=== PATIENT | female | born 1990 | race Caucasian/White ===

== ENCOUNTER → 2018-01-20 | Outpatient (CLI) | payer MEDICAID ==
[2018-01-20 13:56] LABS: HEMOGLOBIN 12.5 g/dl (12.0-15.5); MEAN CORPUSCULAR HEMOGLOBIN 29.6 pg (27.0-33.0); MEAN CORPUSCULAR HGB CONC 33.8 g/dl (32.0-36.5); MEAN CORPUSCULAR VOLUME 87.7 fl (80.0-96.0); PLATELET COUNT, AUTOMATED 265 10^3/uL (150-450); RED BLOOD COUNT 4.22 10^6/uL (4.00-5.40); RED CELL DISTRIBUTION WIDTH 14.4 % (11.5-14.5)
[2018-01-20 14:18] LABS: CONTROL LINE HCG INT CTR LINE PRESENT; HCG, SERUM QUALITATIVE NEGATIVE (NEGATIVE)
[2018-01-20 15:13] LABS: ALBUMIN 4.1 GM/DL (3.2-5.2); ALBUMIN/GLOBULIN RATIO 1.05 (1.00-1.93); ALKALINE PHOSPHATASE 74 U/L (45-117); ALT/SGPT 25 U/L (12-78); ANION GAP 10 MEQ/L (8-16); AST/SGOT 33 U/L (7-37); BILIRUBIN,TOTAL 0.6 MG/DL (0.2-1.0); BLOOD UREA NITROGEN 15 MG/DL (7-18); CALCIUM LEVEL 8.9 MG/DL (8.5-10.1); CARBON DIOXIDE LEVEL 24 MEQ/L (21-32); CHLORIDE LEVEL 105 MEQ/L (98-107); CREATININE FOR GFR 0.66 MG/DL (0.55-1.30); GLOMERULAR FILTRATION RATE > 60.0 (>60); GLUCOSE, FASTING 77 MG/DL (70-100); POTASSIUM SERUM 4.4 MEQ/L (3.5-5.1); SODIUM LEVEL 139 MEQ/L (136-145)
[2018-01-20 16:02] LABS: CHLAMYDIA DNA AMPLIFICATION NEGATIVE (NEGATIVE); GC DNA AMPLIFICATION NEGATIVE (NEGATIVE)
[2018-01-21 12:03] LABS: HEPATITIS B SURFACE ANTIGEN NEGATIVE (NEGATIVE)
[2018-01-21 12:25] LABS: HEPATITIS C VIRUS ABY INDEX 0.2 INDEX (<0.8)
[2018-01-21 12:26] LABS: HIV 1&2 SCREEN CENTAUR NEGATIVE (NEGATIVE)
== END ==
LOC: M LAB 12:53
DX: F11.20 Opioid dependence, uncomplicated (principal)
CPT/HCPCS: 93005

== ENCOUNTER → 2018-03-02 | Outpatient (REF) | payer MEDICAID | LOC: M LAB REF 18:35 | DX: Z12.4 Encounter for screening for malignant neoplasm of cervix (principal) ==

== ENCOUNTER → 2018-03-20 | Outpatient (CLI) | payer MEDICAID ==
[2018-03-20 15:03] LABS: ESTRADIOL 55.6 PG/ML
[2018-03-20 15:03] LABS: FOLLICLE STIMULATING HORMONE 6.6 mIU/mL; FREE T4 0.74 NG/DL (0.76-1.46); PROLACTIN 35.7 NG/ML
[2018-03-25 14:49] LABS: 17 HYDROXY PROGESTERONE 20 ng/dL (.); DEHYDROEPIANDROSTERONE SULFATE 104.8 ug/dL (84.8-378.0); TESTOSTERONE FREE (DIRECT) < 0.2 pg/mL (0.0-4.2); TESTOSTERONE TOTAL FOR T&D < 3.0 ng/dL (8-48)
== END ==
LOC: M LAB 13:30
DX: N97.9 Female infertility, unspecified (principal)
CPT/HCPCS: 83001

== ENCOUNTER → 2018-04-30 | Outpatient (REF) | payer OTHER ==
[2018-04-30 12:54] LABS: C REACTIVE PROTEIN QUANTITATIV < 0.30 MG/DL (0.00-0.30); RHEUMATOID FACTOR QUANT < 10.0 IU/ML (<15.0)
[2018-05-02 00:08] LABS: ANA (HEP2) Negative (.); CYCLIC CITRULLINATED PEPTIDE 8 units (0-19)
== END ==
LOC: M SFHCPLAZ 10:36
PROVIDERS: ATTEND Internal Medicine Rheumatology
DX: M25.50 Pain in unspecified joint (principal)

== ENCOUNTER → 2018-06-04 | Outpatient (CLI) | payer OTHER ==
[2018-06-04 14:42] LABS: BASO % 0.6 % (0.0-1.0); EOS # 0.3 10^3/uL (0.0-0.50); EOS % 3.8 % (0.0-3.0); HEMATOCRIT 36.5 % (36.0-47.0); HEMOGLOBIN 12.6 g/dl (12.0-15.5); LYMPH # 2.2 10^3/uL (1.5-4.5); LYMPH % 30.4 % (24.0-44.0); MEAN CORPUSCULAR HEMOGLOBIN 30.3 pg (27.0-33.0); MEAN CORPUSCULAR HGB CONC 34.5 g/dl (32.0-36.5); MEAN CORPUSCULAR VOLUME 87.7 fl (80.0-96.0); MONO # 0.6 10^3/uL (0.0-0.8); NEUTROPHILS # 4.1 10^3/uL (1.8-7.7); NEUTROPHILS % 57.1 % (36.0-66.0); PLATELET COUNT, AUTOMATED 232 10^3/uL (150-450); RED BLOOD COUNT 4.16 10^6/uL (4.00-5.40); WHITE BLOOD COUNT 7.1 10^3/uL (4.0-10.0)
[2018-06-04 16:12] LABS: CHLAMYDIA DNA AMPLIFICATION NEGATIVE (NEGATIVE); GC DNA AMPLIFICATION NEGATIVE (NEGATIVE)
[2018-06-05 11:21] LABS: HEPATITIS C VIRUS ABY INDEX 0.1 INDEX (<0.8); HIV 1&2 SCREEN CENTAUR NEGATIVE (NEGATIVE); RUBELLA IgG QUALITATIVE IMMUNE (IMMUNE)
== END ==
LOC: M LAB 13:51
PROVIDERS: ATTEND Obstetrics & Gynecology
DX: Z34.81 Encounter for supervision of other normal pregnancy, first trimester (principal); Z3A.08 8 weeks gestation of pregnancy

== ENCOUNTER → 2018-06-10 | Outpatient (CLI) | payer OTHER ==
[2018-06-14 00:08] LABS: HERPES ZOSTER, VARICELLA IgG 1550 index (Immune >165); HERPES ZOSTER, VARICELLA IgM <0.91 index (0.00-0.90)
== END ==
LOC: M SMT 14:46
PROVIDERS: ATTEND Advanced Practice Midwife
DX: Z34.01 Encounter for supervision of normal first pregnancy, first trimester (principal)

== ENCOUNTER → 2018-07-17 | Outpatient (CLI) | payer OTHER ==
--- NOTE | 2018-07-17 11:47 | REP ---
Obstetric sonography: History: Supervision of . For anatomy. Findings: Scanning through the gravid uterus demonstrates a viable single gestation in a variable lie. motion is observed and heart rate is recorded at 136 beats per minute. An anterior placenta is seen grade 0 without evidence of previa. Amniotic fluid is subjectively normal. Closed cervical length measured transabdominally is normal at 4.1 cm. No extrauterine abnormality is observed. anatomic scanning is inhibited by early gestational age and position. The following structures are less than optimally seen: nose and lips, four-chamber heart and outflow tract view on the left side, spine. The following additional anatomic structures are identified and felt to be unremarkable: cranium, cavum, cerebellum and posterior fossa, lungs, right ventricular outflow tract view, diaphragm, left-sided stomach, abdominal wall cord insertion, three-vessel umbilical cord, kidneys and bladder, upper and lower extremities. Bilateral small choroid plexus cysts are seen in the head. Biometry chart: BPD 3.9 cm 17 weeks 5 days Head circumference 14.7 cm 17 weeks 6 days Abdominal circumference 12.7 cm 18 weeks 2 days Femur length 2.6 cm 18 weeks 0 days Humeral length 2.4 cm 17 weeks 3 days Cerebellar diameter 1.8 cm 17 weeks 5 days HC/AC ratio normal 1.16. Cephalic index normal 0.72. Estimated weight 223 grams, 0 pounds 7 ounces, 50th percentile for 18 weeks 0 days. Impression: Viable single intrauterine gestation at 17 weeks 6 days by today's composite sonographic criteria. Small bilateral choroid plexus cysts. anatomic survey is less than complete as above. Variable lie. Electronically Signed by Juaquin Ramesh MD 07/17/2018 02:41 P
== END ==
LOC: M LRY 08:20
PROVIDERS: ATTEND Advanced Practice Midwife
DX: Z34.82 Encounter for supervision of other normal pregnancy, second trimester (principal)

== ENCOUNTER 2018-08-02 08:17 | Outpatient (CLI) | payer OTHER ==
[~2018-08-02] VITALS: Ht 162.6 cm; Wt 80.1 kg
[2018-08-02 08:40] VITALS: BP 125/70
[2018-08-02] MEDS ORDERED: MAPA500T2 PO (08:53)
[2018-08-02] MEDS ORDERED: METH10CO3 PO (08:53)
[2018-08-02] MEDS ORDERED: PRENTAB9 PO (08:53)
[2018-08-02] MEDS ORDERED: TUMS500C PO (08:53)
--- NOTE | 2018-08-02 09:53 | NUR ---
L&D triage note Reason for visit: episode of vaginal bleeding HPI: 28-year-old G1 at 20+2 weeks. Presents for evaluation after an episode of vaginal bleeding. Vaginal bleeding was noticed when she went to the bathroom and wiped. She also noticed bright red blood in the toilet. Most recent intercourse 2 days ago. 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 Denies any painful uterine contractions. No ongoing bleeding. No loss of fluid. Denies fever, chills, nausea, vomiting, headache , shortness breath or chest pain. PN course / pt history notable for the following: -history of drug abuse; currently treated with Methadone and Wellbutrin. -smoking during -Recent LSIL Pap 02/2018 Normotensive, normal heart rate, afebrile Heart regular rate and rhythm. No murmurs, gallops, rubs Lungs clear to auscultation bilaterally Abdomen soft, nontender. Uterine fundal height consistent with dates. No fundal tenderness Speculum: Cervix visually closed. Normal vaginal discharge. No foul odor. No blood in the vaginal vault or on/near cervix. Hemorrhoids present. SVE: closed/long/high TVUS,: CL = 4cm, no funneling/dynamic changes, no previa. cephalic presentation, normal AFV, MVP 4-5cm. EFM/Doptones: FHR was 140bpm [place]: no ctx pattern A/P: 28yo G1 at 20+2 weeks. No e/o active bleeding/abruption, IAI, PTL, or PPROM. Bleeding episode could have been from external hemorrhoids. Reassuring maternal and status. -Routine precautions reviewed -Encouraged smoking cessation. -RTO as scheduled or sooner if bleeding persists. Mikhail Jones DO
== END 2018-08-02 10:00 | disposition home or self-care (01) ==
LOC: M LDO 08:17
PROVIDERS: ATTEND Obstetrics & Gynecology
DX: O26.852 Spotting complicating pregnancy, second trimester (principal); O26.899 Other specified pregnancy related conditions, unspecified trimester; R87.612 Low grade squamous intraepithelial lesion on cytologic smear of cervix (LGSIL); O99.332 Smoking (tobacco) complicating pregnancy, second trimester; Z86.59 Personal history of other mental and behavioral disorders; Z3A.20 20 weeks gestation of pregnancy

== ENCOUNTER → 2018-09-01 | Outpatient (REF) | payer OTHER ==
[~2018-09-01] MED LIST: MAPA500T2 PO; METH10CO3 PO; PRENTAB9 PO; TUMS500C PO
== END ==
LOC: M LAB REF 16:58
PROVIDERS: ATTEND Advanced Practice Midwife
DX: Z34.82 Encounter for supervision of other normal pregnancy, second trimester (principal); Z3A.00 Weeks of gestation of pregnancy not specified

== ENCOUNTER → 2018-09-29 | Outpatient (CLI) | payer OTHER ==
[2018-09-29 13:35] LABS: HEMOGLOBIN 11.9 g/dl (12.0-15.5); MEAN CORPUSCULAR HEMOGLOBIN 32.2 pg (27.0-33.0); MEAN CORPUSCULAR VOLUME 94.6 fl (80.0-96.0); PLATELET COUNT, AUTOMATED 223 10^3/uL (150-450); WHITE BLOOD COUNT 8.2 10^3/uL (4.0-10.0)
== END ==
LOC: M LAB 11:48
PROVIDERS: ATTEND Advanced Practice Midwife
DX: O26.892 Other specified pregnancy related conditions, second trimester (principal); Z3A.00 Weeks of gestation of pregnancy not specified

== ENCOUNTER → 2018-11-26 | Outpatient (REF) | payer OTHER ==
[~2018-11-26] MED LIST changes: +ACET-683 PO; +BENA25CA4 PO; +IBUP80TA PO; +MIRA3350 PO; +VENL37TA PO; +ZANT150T40 PO
== END ==
LOC: M LAB REF 17:09
PROVIDERS: ATTEND Obstetrics & Gynecology
DX: Z34.83 Encounter for supervision of other normal pregnancy, third trimester (principal)

== ENCOUNTER 2018-12-25 07:25 | Inpatient (IN) | payer OTHER ==
[2018-12-25] VITALS (11 sets, daily range): BP systolic 107–137; BP diastolic 55–90
[~2018-12-25] VITALS: Ht 162.6 cm; Wt 89.3 kg
[~2018-12-25 07:25] MED LIST changes: -ACET-683 PO; -BENA25CA4 PO; -IBUP80TA PO; -MIRA3350 PO; -VENL37TA PO; -ZANT150T40 PO
[2018-12-25] MEDS ORDERED: LACTATED RINGER'S 1000 ML IV STA (08:12)
[2018-12-25] MEDS ORDERED: METH10CO3 PO (08:19)
[2018-12-25] MEDS ORDERED: BENA25CA4 PO (08:19)
[2018-12-25] MEDS ORDERED: ZANT150T40 PO (08:19)
[2018-12-25] MEDS ORDERED: MIRA3350 PO (08:19)
--- NOTE | 2018-12-25 08:36 | HPEPDOC ---
Obstetrical History & Physical General Date of Admission Dec 25, 2018 at 07:25 History of Present Illness Chief Complaint: Induction of labor Information Provided By: Patient Age: 28 : 1 Term: 0 Pre-term: 0 Abortions: 0 Livin Care Care: Good Care Dating Final EDC: Dec 18, 2018 Final EDC by: LMP EGA at Admission: 41 Antepartum Course Height (inches): 64 Pre- weight (lbs.): 165 Admission Weight (lbs.): 193 Past Medical History Past Obstetrical History : Past Obstetrical History: [employer] History: Abnormal Pap Past Medical History Medical History Bipolar, PTSD Surgical History: Other (Hand) Family History Significant Family History: COPD, Other (Osteoporosis, leukemia, dementia) Social History Social history Recovering IV drug user. Maintained with methadone 90 mg daily Marital Status: Single Family situation: Spouse/partner home Psychosocial History: Bipolar, Depression, PTSD * Smoker: current smoker Alcohol: Denies Drugs: other (recovering) Imunizations Tdap status: current Allergies Coded Allergies: No Known Allergies (Unverified , 08/02/18) Medications Scheduled Calcium Carbonate (Tums) 500 Mg Chw, 2 TAB PO QID for cough and congestion No.137/Iron/Folic Acd ( Vitamin Tablet) 1 Tab Tab, 1 TAB PO DA DAISHA Miscellaneous Medications Acetaminophen (Mapap) 500 Mg Tab, 500 MG PO Methadone HCl (Methadone Intensol) 10 Mg/Ml Con, 10 MG PO Physical Examination Physical Examination GENERAL: Alert and oriented times three. BREAST: . ABDOMEN: Gravid and non-tender to touch. Presentation confirmed by bedside sono FETUS: Is vertex (VTX) by sterile vaginal examination (SVE), fetus is vertex (VTX) by [place]. HEART RATE: Regular rate and rhythm. LUNGS: Clear to auscultation (CTA). EXTREMITIES: No edema. No clonus. Deep tendon reflexes (DTRs) + 2. Laboratory Data [facility] Laboratory Tests 2 12/25/18 07:42: Serology Scanned Report Hepatitis B Testing Pertinent Laboratoy Data Blood Type: O+ RBC Antibody Screen: Negative HIV: Negative Hepatitis B: Negative Hepatitis C: Negative Rapid Plasma Reagin: Nonreactive Rubella: Immune Chlamydia/Gonorrhea: Negative Group B Streptococcus: Negative Quad Screen Test: Negative (panorama low risk, female) Glucose Tolerance Test: 108 Anatomy Ultrasound Ultrasound Date: Jul 17, 2018 Placenta Location: Anterior Normal Anatomy: Yes Placenta Previa: No Estimated Weight (grams): 223 (50%) Other Ultrasounds 05/08/18 dating 7w5d 09/02/18 growth 750gm, 50%, breech 11/26/18 Cephalic 12/25/18 Cephalic Steroid Therapy Steroid Therapy: No Vaginal Examination Dilation: Fingertip Effacement: 50% Station: -3 Cervical Consistency: Soft Cervical Position: Posterior Presentation: Cephalic presentation Assessment Heart Rate (FHR): 115 Variability: Moderate Accelerations: Positive Decelerations: None Tocometer Contractions: Yes Frequency: irregular Strength: palpated as mild Assessment/Plan Assessment Maryam is a 28-year-old (G)1 para (P)0-0-0-0 at 41+0 weeks by 7-week u ltrasound. Presents to Labor and Delivery (L&D) for postdates induction. History is significant for recovering IV drug user, maintained on methadone 90mg daily. Denies LOF, bleeding. Reports good activity. Bedside sono confirms vertex presentation. Plan Admit and orient per consult Dr Zaidi Prison Teacher and consent. Diet: Regular. Group B Streptococcus (GBS) negative. Labs and intravenous (IV) per unit protocol. Counseled on misoprostol, Pitocin and induction of labor (IOL). Lactated Ringers (LR): Bolus 500 mL, then saline lock. Planning epidural Anticipate normal spontaneous delivery (). C-S as appropriate. Kathleen Davies CNM Dec 25, 2018 08:36
[2018-12-25 09:16] LABS: HEMOGLOBIN 12.3 g/dl (12.0-15.5); MEAN CORPUSCULAR HEMOGLOBIN 32.8 pg (27.0-33.0); MEAN CORPUSCULAR HGB CONC 34.2 g/dl (32.0-36.5); PLATELET COUNT, AUTOMATED 190 10^3/uL (150-450); RED BLOOD COUNT 3.75 10^6/uL (4.00-5.40); WHITE BLOOD COUNT 6.4 10^3/uL (4.0-10.0)
[2018-12-25] MEDS: miSOPROStol 50 MCG 1/2 TAB (S0191) PO SCH ×4 (09:34→23:16)
[2018-12-25 09:40] LABS: AMPHETAMINES URINE REFLEX NEGATIVE (NEGATIVE); BARBITURATES URINE REFLEX NEGATIVE (NEGATIVE); BENZODIAZEPINES URINE REFLEX NEGATIVE (NEGATIVE); CANNABINOIDS URINE REFLEX NEGATIVE (NEGATIVE); COCAINE METABOLITE URINE REFLE NEGATIVE (NEGATIVE); OPIATES URINE REFLEX NEGATIVE (NEGATIVE); PHENCYCLIDINE URINE REFLEX NEGATIVE (NEGATIVE)
[2018-12-25 09:48] LABS: METHADONE URINE REFLEX PENDING CONFIRMATION (NEGATIVE)
--- NOTE | 2018-12-25 09:52 | IPNPDOC ---
Text Note Date of Service The patient was seen on 12/25/18. NOTE Pt is now reporting history of a "lesion", treated with Valtrex when she was in [place] Denies any further outbreaks Vulvar inspection shows no evidence of active or recent lesions Records release requested for further information Will update physician Florinda EVANS, I+Florinda HINDS, I+O Laboratory Tests 12/25/18 09:01 Red Blood Count 3.75 L, Mean Corpuscular Volume 96.0, Mean Corpuscular Hemoglobin 32.8, Mean Corpuscular Hemoglobin Concent 34.2, Red Cell Distribution Width 12.8 Kathleen Davies CNM Dec 25, 2018 09:52
[2018-12-25] MEDS ORDERED: CALCIUM CARBONATE 500 MG CHEW U/D PO PRN (14:15)
[2018-12-25] MEDS: FAMOTIDINE 20 MG TAB PO SCH ×2 (14:47→20:50)
--- NOTE | 2018-12-25 23:30 | IPNPDOC ---
Text Note Date of Service The patient was seen on 12/25/18. NOTE Remains relatively comfortable Irregular UC FH baseline 120, Cat I SVE 50/-3, more anterior Repeat misoprostol, consider Cooks catheter and pitocin VS,Fishbone, I+O VS, Fishbone, I+O Laboratory Tests 12/25/18 09:01 Red Blood Count 3.75 L, Mean Corpuscular Volume 96.0, Mean Corpuscular Hemoglobin 32.8, Mean Corpuscular Hemoglobin Concent 34.2, Red Cell Distribution Width 12.8 Vital Signs Date Time Temp Pulse Resp B/P (MAP) Pulse Ox O2 Delivery O2 Flow Rate FiO2 12/25/18 20:48 63 132/90 (104) 12/25/18 19:23 97.8 18 Kathleen Davies CNM Dec 25, 2018 23:30
[2018-12-26] VITALS (58 sets, daily range): BP systolic 109–165; BP diastolic 58–101
[2018-12-26] MEDS: miSOPROStol 50 MCG 1/2 TAB (S0191) PO SCH (03:59)
[2018-12-26] MEDS: METHADONE 10 MG TAB (S0109) PO SCH (04:00)
[2018-12-26] MEDS ORDERED: OXYTOCIN 30 UNITS IN 0.9% NaCl 500ML IV BAG (J2590) As Ordered ONE (08:18)
[2018-12-26] MEDS ORDERED: OXYTOCIN DRIP 30 UNITS in IV 1 EA IV SCH (08:30)
[2018-12-26] MEDS: LR 1,000 ML IV SCH ×3 (08:32→18:40)
[2018-12-26] MEDS: FAMOTIDINE 20 MG TAB PO SCH ×2 (09:54→21:00)
[2018-12-26] MEDS ORDERED: FENTANYL 2MCG/ML ROPIVACAINE 0.2% IN 0.9% NACL 100ML IVBAG As Ordered ONE (19:14)
[2018-12-26] MEDS ORDERED: LACTATED RINGER'S 1000 ML IV PRN (20:30)
[2018-12-26] MEDS ORDERED: EPIDURAL/PCA KEYS XX PRN (20:30)
[2018-12-26] MEDS ORDERED: NALOXONE INJ 0.4 MG/1 ML VIAL (J2310) IV PRN (20:30)
[2018-12-26] MEDS ORDERED: EPIDURAL COMMENT XX SCH (20:30)
[2018-12-26] MEDS ORDERED: ONDANSETRON 4MG/2ML VIAL (J2405) IV PRN (20:30)
[2018-12-26] MEDS ORDERED: REFRIGERATOR IV KEYS XX PRN (20:30)
[2018-12-26] MEDS ORDERED: FENTANYL/ROPIVACAINE/NACL BAG 100 ML EPIDURAL SCH (20:30)
[2018-12-26] MEDS ORDERED: diphenhydrAMINE INJ 50MG/ML VIAL (J1200) IV PRN (20:30)
[2018-12-26] MEDS ORDERED: ePHEDrine SULFATE 25 MG/5 ML(5MG/ML) SYRINGE IV PRN (20:30)
[2018-12-26] MEDS ORDERED: ACETAMINOPHEN 500 MG TAB PO PRN (23:00)
[2018-12-27] VITALS (17 sets, daily range): BP systolic 99–131; BP diastolic 51–78
[2018-12-27] MEDS ORDERED: AZITHROMYCIN INJ 500MG VIAL (J0456) As Ordered ONE (00:11)
[2018-12-27] MEDS ORDERED: BICITRA 30ML SOLN UDC As Ordered ONE (00:12)
[2018-12-27] MEDS ORDERED: ceFAZolin 2 GM/D5W 50 ML IV BAG (J0690 PER 500MG) As Ordered ONE (00:12)
[2018-12-27] MEDS ORDERED: MORPHINE PRES-FREE INJ 10 MG/10 ML VIAL (J2274) As Ordered ONE (00:54)
[2018-12-27] MEDS ORDERED: ONDANSETRON 4MG/2ML VIAL (J2405) As Ordered ONE (00:54)
[2018-12-27] MEDS ORDERED: LIDOCAINE PRES-FREE 2% 10ML AMP As Ordered ONE (00:54)
[2018-12-27] MEDS ORDERED: OXYTOCIN INJ 10 UNITS/ML VIAL (J2590) As Ordered ONE ×2 (00:54→01:01)
[2018-12-27] MEDS ORDERED: KETOROLAC 60 MG/2 ML VIAL (J1885) As Ordered ONE (00:54)
[2018-12-27] MEDS ORDERED: EPINEPHrine INJ 1 MG/ML 1ML AMP As Ordered ONE (00:54)
[2018-12-27] MEDS ORDERED: NALBUPHINE HCL 10 MG/ML AMP (J2300) IV PRN (01:00)
[2018-12-27] MEDS ORDERED: diphenhydrAMINE INJ 50MG/ML VIAL (J1200) IV PRN (01:00)
[2018-12-27] MEDS ORDERED: NALOXONE INJ 0.4 MG/1 ML VIAL (J2310) IV PRN ×2 (01:00)
[2018-12-27] MEDS ORDERED: METOCLOPRAMIDE INJ 10MG/2ML VIAL (J2765) IV PRN (01:00)
[2018-12-27] MEDS ORDERED: ONDANSETRON 4MG/2ML VIAL (J2405) IV PRN ×2 (01:00→02:00)
[2018-12-27] MEDS ORDERED: dexameTHASONE 4 MG/ML 1ML VIAL (J1100) As Ordered ONE (01:01)
[2018-12-27] MEDS ORDERED: PHENYLephrine HCL 500 MCG/5 ML (100MCG/ML) SYRINGE (J2370) As Ordered ONE (01:01)
[2018-12-27 01:07] LABS: CORD GAS ABE A -0.5; CORD GAS ABE V -1.5; CORD GAS HCO3 V 23.7 MEQ/L; CORD GAS O2 SAT A 45.4 %; CORD GAS O2 SAT V 80.2 %; CORD GAS PCO2 A 49.7 mmHg; CORD GAS PCO2 V 41.8 mmHg; CORD GAS PH A 7.336 UNITS; CORD GAS PH V 7.372 UNITS; CORD GAS PO2 A 19.4 mmHg; CORD GAS PO2 V 36.1 mmHg; CORD GAS SBC A 22.7 MEQ/L; CORD GAS SBC V 22.8 MEQ/L; CORD GAS TCO2 A 27.5 MEQ/L
[2018-12-27] MEDS ORDERED: fentaNYL 100 MCG/2 ML INJECTION (J3010) IV PRN (02:00)
[2018-12-27] MEDS: LR 1,000 ML IV SCH ×2 (02:06→10:06)
[2018-12-27] MEDS ORDERED: OXYTOCIN DRIP 30 UNITS in IV 1 EA IV SCH (02:06)
[2018-12-27] MEDS ORDERED: PERCOCET 5MG/325MG TAB PO PRN (02:15)
[2018-12-27] MEDS ORDERED: MEASLES,MUMPS,RUBELLA VACCINE INJ (MMR-II) (90707) SC SCH (02:15)
[2018-12-27] MEDS ORDERED: RHOGAM 300 MCG (1500 IU) INJ (J2790) IM SCH (02:15)
[2018-12-27] MEDS ORDERED: MOM 30ML SUSPENSION UDC PO PRN (02:15)
[2018-12-27] MEDS: METHADONE 10 MG TAB (S0109) PO SCH (04:30)
[2018-12-27] MEDS: KETOROLAC 30 MG/ML VIAL (J1885) IV SCH ×3 (06:40→19:48)
--- NOTE | 2018-12-27 08:25 | RO ---
DATE OF OPERATION: 12/26/2018 PREOPERATIVE DIAGNOSIS: Nonreassuring heart rate tracing. POSTOPERATIVE DIAGNOSES: Nonreassuring heart rate tracing. PROCEDURE PERFORMED: Primary lower transverse section. SURGEON: Bernie Zaidi MD BILINGUAL OPERATOR: None. ANESTHESIA: Epidural. ESTIMATED BLOOD LOSS: 500 mL. URINE OUTPUT: 200 mL. IV FLUIDS: 500 mL of lactated Ringer solution. OPERATIVE FINDINGS: Live born female infant, score 8 and 9. Weight was 7 pounds 11 ounces or 3490 grams. SPECIMENS: Cord gases; cord pH 7.33, 7.32, -0.5 to -1.5 base excesses respectively. PREOPERATIVE ANTIBIOTICS: 2 grams of Ancef, 500 mg of azithromycin. INDICATION FOR OPERATION: Mrs. Hernadez is a 28-year-old, 1 that presented at 41 weeks for induction of labor. Her antepartum course is remarkable for repetitive decelerations, ike in the 80s and cervix remained unchanged at 6 cm. She was counseled for section with indication of nonreassuring rate tracing. DESCRIPTION OF OPERATION: After informed consent was obtained and written consent was reviewed, the patient was brought to the operating room where she was prepped and draped in a normal sterile fashion. She had previously had a Berrios catheter that was placed and set to gravity. A time-out in the operating room was then performed identifying the patient, procedure to be performed, as well as drug allergies. Anesthesia was tested and deemed to be adequate. A Pfannenstiel skin incision was then made and this was carried down to the underlying rectus fascia. The fascia was scored and this incision was extended bilaterally. The fascia was then dissected off the underlying rectus muscles both superiorly and inferiorly. The rectus muscles were in the midline. The peritoneum was then entered. A Mobius retractor was then placed. The vesicouterine peritoneum was then identified. It was then excised to create a bladder flap. A curvilinear incision was then made in the lower uterine segment. This incision was extended bilaterally. head was brought to the level of incision atraumatically and was delivered along with shoulders and corpus. Cord was clamped times two and was cut, and was taken over to the warmer with a good cry. Cord gases were obtained. Placenta was then delivered grossly intact. The uterus was then cleared of all clots and debris. The uterine incision was then closed two layers using #0 Vicryl first in a running locking fashion, followed by a second layer for imbrication in a running nonlocking fashion. The abdomen was then suctioned. The anterior peritoneum was then reapproximated with #3-0 Vicryl. The rectus muscles were reapproximated #3-0 Vicryl. The fascia was then closed with #0 Vicryl in a running nonlocking fashion. The subcutaneous tissue was then irrigated and suctioned. Subcutaneous tissue was then reapproximated with #3-0 Vicryl. Several subdermal stitches were placed with #3-0 Vicryl and the skin was closed with #4-0 Monocryl in subcuticular fashion. Incision was then clean and dry and was dressed. The patient was then taken to recovery in stable condition. Counts were correct.
[2018-12-27] MEDS: PRENATAL VITAMINS CHEWABLE TABLET PO SCH (09:50)
[2018-12-27] MEDS: DOCUSATE SODIUM 100 MG CAP PO SCH ×2 (09:50→19:48)
[2018-12-28] MEDS: IBUPROFEN 800 MG TAB PO SCH ×3 (04:04→19:49)
[2018-12-28] MEDS: METHADONE 10 MG TAB (S0109) PO SCH (04:06)
[2018-12-28 05:34] VITALS: BP 108/63
[2018-12-28 07:18] LABS: HEMOGLOBIN 8.8 g/dl (12.0-15.5); MEAN CORPUSCULAR HEMOGLOBIN 32.5 pg (27.0-33.0); MEAN CORPUSCULAR HGB CONC 33.8 g/dl (32.0-36.5); MEAN CORPUSCULAR VOLUME 95.9 fl (80.0-96.0); PLATELET COUNT, AUTOMATED 159 10^3/uL (150-450); RED BLOOD COUNT 2.71 10^6/uL (4.00-5.40); WHITE BLOOD COUNT 10.8 10^3/uL (4.0-10.0)
[2018-12-28] MEDS: DOCUSATE SODIUM 100 MG CAP PO SCH ×2 (10:20→21:11)
[2018-12-28] MEDS: PRENATAL VITAMINS CHEWABLE TABLET PO SCH (10:20)
[2018-12-28] MEDS: VENLAFAXINE 37.5 MG TAB PO SCH (10:20)
[2018-12-28] MEDS: PERCOCET 5MG/325MG TAB PO PRN ×3 (12:14→23:29)
[2018-12-28 18:00] VITALS: BP 121/69
[2018-12-28 22:07] VITALS: BP 125/83
[2018-12-29] MEDS: IBUPROFEN 800 MG TAB PO SCH ×3 (04:07→19:22)
[2018-12-29] MEDS: METHADONE 10 MG TAB (S0109) PO SCH (04:07)
[2018-12-29 06:23] VITALS: BP 144/87
[2018-12-29] MEDS: PERCOCET 5MG/325MG TAB PO PRN ×2 (06:32→11:33)
[2018-12-29] MEDS ORDERED: VENL37TA PO (07:25)
[2018-12-29] MEDS ORDERED: ACET-683 PO (07:25)
[2018-12-29] MEDS ORDERED: IBUP80TA PO (07:25)
--- NOTE | 2018-12-29 07:33 | DS.PDOC ---
Discharge Summary General Date of Admission Dec 25, 2018 at 07:25 Date of Discharge 12/29/18 Attending Physician: DOMINIQUE BOLAÑOS MD. Discharge Summary PROCEDURES PERFORMED DURING STAY: Primary section. ADMITTING DIAGNOSES: 1. IUP at 41 weeks gestation. 2. IOL DISCHARGE DIAGNOSES: 1. Day 2 postoperative. COMPLICATIONS/CHIEF COMPLAINT: Induction. HISTORY OF PRESENT ILLNESS: Patient is a 28-year-old female who is now a who presented to L&D for an induction of labor. Her has been complicated by a history of PTSD and depression. It has also been complicated by methadone use, which she is taking 90 mg daily. She progressed to 6 cm and was found to have a non-reassuring heart rate. A section was performed due to this. HOSPITAL COURSE: uncomplicated. DISCHARGE MEDICATIONS: Please see below. ALLERGIES: Please see below. PHYSICAL EXAMINATION ON DISCHARGE: VITAL SIGNS: Please see below. GENERAL: A+Ox3. RESPIRATORY EXAMINATION: regular rate with no use of accessory muscles ABDOMINAL EXAMINATION: fundus firm; Dressing is intact. EXTREMITIES: generalized edema with areas of 1+ pitting edema SKIN: intact with no rashes LABORATORY DATA: Please see below. ACTIVITY: As tolerated DIET: regular DISCHARGE INSTRUCTIONS: 1. Follow-up in 1 week for incision check and 6-8 weeks for visit. 2. Education done on incision care. 3. Reviewed signs and symptoms of mastitis, endometriosis, hemorrhage, DVT, pulmonary embolism, depression, pelvic rest, and pain management. DISCHARGE CONDITION: Stable Vital Signs/I&Os Vital Signs Date Time Temp Pulse Resp B/P (MAP) Pulse Ox O2 Delivery O2 Flow Rate FiO2 12/29/18 06:32 18 12/29/18 06:23 97.8 65 144/87 (106) 12/28/18 18:00 99 Laboratory Data CBC/BMP Item Value Date Time White Blood Count 10.8 10^3/uL H 12/28/18 0657 Red Blood Count 2.71 10^6/uL L 12/28/18 0657 Hemoglobin 8.8 g/dl L 12/28/18 0657 Hematocrit 26.0 % L 12/28/18656 Mean Corpuscular Volume 95.9 fl 12/28/18656 Mean Corpuscular Hemoglobin 32.5 pg 12/28/18656 Mean Corpuscular Hemoglobin Concent 33.8 g/dl 12/28/18 0657 Red Cell Distribution Width 13.1 % 12/28/18 0657 Platelet Count 159 10^3/uL 12/28/18 0657 Nucleated Red Blood Cells % (auto) 0.0 % 12/28/18 0657 Discharge Medications Scheduled Methadone HCl (Methadone Intensol) 10 Mg/1 Ml Oral.conc, 90 MG PO DAILY, (Reported) No.137/Iron/Folic Acd ( Vitamin Tablet) 1 Tab Tab, 1 TAB PO DAILY, (Reported) Venlafaxine HCl (Venlafaxine HCl) 37.5 Mg Tablet, 37.5 MG PO DAILY Scheduled PRN Acetaminophen (Acetaminophen) 500 Mg Tablet, 1,000 MG PO Q8HP PRN for BACK PAIN Ibuprofen (Ibuprofen) 800 Mg Tablet, 800 MG PO Q8HP PRN for PAIN Polyethylene Glycol 3350 (Miralax) 119 Gm Powder, 17 GM PO DAILY PRN for CONSTIPATION, (Reported) dilute in 8 ounces of water or juice Allergies Coded Allergies: No Known Allergies (Unverified , 08/02/18) JULISA SYED CNM Dec 29, 2018 07:33
[2018-12-29] MEDS: PRENATAL VITAMINS CHEWABLE TABLET PO SCH (09:58)
[2018-12-29] MEDS: DOCUSATE SODIUM 100 MG CAP PO SCH ×2 (09:58→20:26)
[2018-12-29] MEDS: VENLAFAXINE 37.5 MG TAB PO SCH (09:58)
[2018-12-29 18:00] VITALS: BP 144/82
[2018-12-30] MEDS: PERCOCET 5MG/325MG TAB PO PRN (00:10)
[2018-12-30] MEDS: METHADONE 10 MG TAB (S0109) PO SCH (04:15)
[2018-12-30] MEDS: IBUPROFEN 800 MG TAB PO SCH ×2 (04:16→10:20)
[2018-12-30 05:30] VITALS: BP 145/93
[2018-12-30 08:06] LABS: GC Methadone 1050 ng/mL (Cutoff=100); Methadone Positive (.)
[2018-12-30] MEDS: VENLAFAXINE 37.5 MG TAB PO SCH (10:19)
[2018-12-30] MEDS: DOCUSATE SODIUM 100 MG CAP PO SCH (10:19)
[2018-12-30] MEDS: PRENATAL VITAMINS CHEWABLE TABLET PO SCH (10:19)
--- NOTE | 2018-12-31 17:45 | DSES ---
DATE OF ADMISSION: 12/25/2018 DATE OF DISCHARGE: 12/30/2018 HISTORY: A 28-year-old G1 female at 41 weeks gestation presents for post dates induction. She has a past history of intravenous (IV) drug use and is on methadone maintenance. HOSPITAL COURSE: Patient was admitted on 12/25/2018. She had induction of labor started with misoprostol. She made slow progress in labor. On 12/27/2018, she was noted to have non-reassuring heart tracing, 3-pattern decelerations remote from delivery. Plan was made for section. On 12/26/2018 she underwent primary low transverse section for a 7-pound 11-ounce female . There were no complications. Her postoperative course was unremarkable. She had adequate return of bladder and bowel function. Her postoperative hemoglobin was 8.8 grams per deciliter. She seemed stable for discharge on postoperative day #3. ADMISSION DIAGNOSIS: , 41 weeks. DISCHARGE DIAGNOSIS: Delivered. PROCEDURE: Primary low transverse section. DISPOSITION: Patient will followup with Dr. Zaidi in 2 weeks.
== END 2018-12-30 13:00 | disposition home or self-care (01) | DRG 540 ==
LOC: M LDI 07:25 → M OBS 12-27 03:50
PROVIDERS: ADMIT Advanced Practice Midwife; ATTEND Obstetrics & Gynecology
PROC: 3E0P7GC Introduction of Other Therapeutic Substance into Female Reproductive, Via Natural or Artificial Opening (ICD-10-PCS; 2018-12-25)
PROC: 10D00Z1 Extraction of Products of Conception, Low, Open Approach (ICD-10-PCS; principal; 2018-12-26)
DX: O48.0 Post-term pregnancy (principal); F17.210 Nicotine dependence, cigarettes, uncomplicated; Z3A.41 41 weeks gestation of pregnancy; Z37.0 Single live birth; O76 Abnormality in fetal heart rate and rhythm complicating labor and delivery; O99.334 Smoking (tobacco) complicating childbirth

== ENCOUNTER → 2019-02-22 | Outpatient (CLI) | payer OTHER ==
[~2019-02-22] MED LIST changes: +ACET-683 PO; +BENA25CA4 PO; +IBUP80TA PO; +MIRA3350 PO; +VENL37TA PO; +ZANT150T40 PO
[2019-02-22 12:02] LABS: HEMATOCRIT 36.2 % (36.0-47.0); HEMOGLOBIN 11.9 g/dl (12.0-15.5); MEAN CORPUSCULAR HEMOGLOBIN 31.1 pg (27.0-33.0); MEAN CORPUSCULAR HGB CONC 32.9 g/dl (32.0-36.5); MEAN CORPUSCULAR VOLUME 94.5 fl (80.0-96.0); PLATELET COUNT, AUTOMATED 253 10^3/uL (150-450); RED BLOOD COUNT 3.83 10^6/uL (4.00-5.40); WHITE BLOOD COUNT 6.5 10^3/uL (4.0-10.0)
[2019-02-22 12:32] LABS: ALBUMIN 3.9 GM/DL (3.2-5.2); ALT/SGPT 28 U/L (12-78); BILIRUBIN,TOTAL 0.5 MG/DL (0.2-1.0); BLOOD UREA NITROGEN 14 MG/DL (7-18); CALCIUM LEVEL 9.2 MG/DL (8.5-10.1); CARBON DIOXIDE LEVEL 27 MEQ/L (21-32); CHLORIDE LEVEL 105 MEQ/L (98-107); CREATININE FOR GFR 0.82 MG/DL (0.55-1.30); GLOMERULAR FILTRATION RATE > 60.0 (>60); GLUCOSE, FASTING 97 MG/DL (70-100); POTASSIUM SERUM 4.4 MEQ/L (3.5-5.1); SODIUM LEVEL 138 MEQ/L (136-145); TOTAL PROTEIN 7.4 GM/DL (6.4-8.2)
[2019-02-22 12:34] LABS: HCG, SERUM QUALITATIVE NEGATIVE (NEGATIVE)
[2019-02-22 12:53] LABS: HEPATITIS B SURFACE ANTIGEN NEGATIVE (NEGATIVE)
[2019-02-22 13:20] LABS: HEPATITIS C VIRUS ABY INDEX 0.1 INDEX (<0.8)
[2019-02-22 13:21] LABS: HIV 1&2 SCREEN CENTAUR NEGATIVE (NEGATIVE)
[2019-02-22 14:09] LABS: CHLAMYDIA DNA AMPLIFICATION NEGATIVE (NEGATIVE); GC DNA AMPLIFICATION NEGATIVE (NEGATIVE)
--- NOTE | 2019-02-24 08:14 | ECGEPIP ---
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
== END ==
LOC: M LAB 11:06
PROVIDERS: ATTEND Family Medicine
DX: F11.20 Opioid dependence, uncomplicated (principal)

== ENCOUNTER → 2019-04-13 | Outpatient (REF) | payer OTHER ==
[2019-04-13 16:46] LABS: APPEARANCE, URINE CLEAR (CLEAR); BACTERIA, URINE AUTO NEGATIVE (NEGATIVE); BILIRUBIN, URINE AUTO NEGATIVE (NEGATIVE); BLOOD, URINE BLOOD NEGATIVE (NEGATIVE); COLOR, URINE STRAW (YELLOW); GLUCOSE, URINE (UA) AUTO NEGATIVE (NEGATIVE); KETONE, URINE AUTO NEGATIVE (NEGATIVE); LEUKOCYTE ESTERASE, URINE AUTO 2+ (NEGATIVE); MUCUS, URINE SMALL (NEGATIVE); NITRITE, URINE AUTO NEGATIVE (NEGATIVE); PROTEIN, URINE AUTO NEGATIVE (NEGATIVE); RBC, URINE AUTO 0 /HPF (0-3); SPECIFIC GRAVITY URINE AUTO 1.004 (1.002-1.035); SQUAMOUS EPITHELIAL CELL UR AU 0 /HPF (0-6); UROBILINOGEN, URINE AUTO 0.2 mg/dL (0.0-2.0); WBC, URINE AUTO 1 /HPF (0-3)
== END ==
LOC: M LAB REF 11:50
PROVIDERS: ATTEND Obstetrics & Gynecology
DX: R39.89 Other symptoms and signs involving the genitourinary system (principal); Z91.89 Other specified personal risk factors, not elsewhere classified

== ENCOUNTER 2020-02-09 15:17 | Emergency (ER) | payer OTHER ==
[~2020-02-09] VITALS: Ht 160 cm; Wt 83.6 kg
[2020-02-09] MEDS ORDERED: GABA-843 (15:25)
[2020-02-09] MEDS ORDERED: BUPR150T5 (15:25)
[2020-02-09] MEDS ORDERED: INDO50CA91 PO (17:32)
[2020-02-09 17:43] VITALS: BP 131/92
== END 2020-02-09 17:43 | disposition home or self-care (01) ==
LOC: M ED 15:17
DX: M25.461 Effusion, right knee (principal); M71.21 Synovial cyst of popliteal space [Baker], right knee; Z79.899 Other long term (current) drug therapy

== ENCOUNTER → 2020-08-08 | Outpatient (CLI) | payer OTHER ==
[~2020-08-08] MED LIST changes: +BUPR150T5; +GABA-282; +INDO50CA91 PO
[2020-08-08 15:40] LABS: HEMOGLOBIN 12.7 g/dl (12.0-15.5); MEAN CORPUSCULAR HEMOGLOBIN 30.8 pg (27.0-33.0); MEAN CORPUSCULAR HGB CONC 32.6 g/dl (32.0-36.5); MEAN CORPUSCULAR VOLUME 94.7 fl (80.0-96.0); PLATELET COUNT, AUTOMATED 252 10^3/uL (150-450); RED BLOOD COUNT 4.12 10^6/uL (4.00-5.40); WHITE BLOOD COUNT 6.2 10^3/uL (4.0-10.0)
[2020-08-08 15:56] LABS: HCG, SERUM QUALITATIVE NEGATIVE (NEGATIVE)
[2020-08-08 15:58] LABS: ALBUMIN 3.9 GM/DL (3.2-5.2); ALT/SGPT 19 U/L (12-78); BILIRUBIN,TOTAL 0.3 MG/DL (0.2-1.0); BLOOD UREA NITROGEN 23 MG/DL (7-18); CALCIUM LEVEL 8.8 MG/DL (8.5-10.1); CARBON DIOXIDE LEVEL 32 MEQ/L (21-32); CHLORIDE LEVEL 104 MEQ/L (98-107); CREATININE FOR GFR 0.79 MG/DL (0.55-1.30); GLOMERULAR FILTRATION RATE > 60.0 (>60); GLUCOSE, FASTING 114 MG/DL (70-100); POTASSIUM SERUM 4.2 MEQ/L (3.5-5.1); SODIUM LEVEL 139 MEQ/L (136-145); TOTAL PROTEIN 7.3 GM/DL (6.4-8.2)
[2020-08-08 16:17] LABS: HEPATITIS B SURFACE ANTIGEN NEGATIVE (NEGATIVE)
[2020-08-08 16:45] LABS: HEPATITIS C VIRUS ABY INDEX < 0.0 INDEX (<0.8)
[2020-08-08 16:46] LABS: HIV 1&2 SCREEN CENTAUR NEGATIVE (NEGATIVE)
--- NOTE | 2020-08-08 20:44 | ECGEPIP ---
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
== END ==
LOC: M LAB 14:50
PROVIDERS: ATTEND Family Medicine
DX: F11.20 Opioid dependence, uncomplicated (principal)

== ENCOUNTER → 2020-10-26 | Outpatient (CLI) | payer OTHER ==
--- NOTE | 2020-10-26 18:24 | REPVR ---
PROCEDURE INFORMATION: Exam: CT Maxillofacial Without Contrast, Sinus Exam date and time: 10/26/2020 6:10 PM Age: 30 years old Clinical indication: Condition or disease; Other: Deviated septum; Additional info: Deviated nasal septum TECHNIQUE: Imaging protocol: CT Maxillofacial without contrast. Focus on the sinuses. Radiation optimization: All CT scans at this facility use at least one of these dose optimization techniques: automated exposure control; mA and/or kV adjustment per patient size (includes targeted exams where dose is matched to clinical indication); or iterative reconstruction. COMPARISON: No relevant prior studies available. FINDINGS: Frontal sinuses: Normal. No air-fluid levels. Ethmoid air cells: Inflammatory changes in the ethmoid and left maxillary sinuses. Sphenoid sinuses: Normal. No air-fluid levels. Maxillary sinuses: Normal. No air-fluid levels. Ostiomeatal units are patent. Nasal cavity/Septum: Nasal septum deviated to the right. Bilateral aidee bullosa. Orbital cavity: Orbits are normal. Globes are unremarkable. Bones/joints: Unremarkable. Soft tissues: Unremarkable. IMPRESSION: 1. Nasal septum deviated to the right. 2. Bilateral aidee bullosa. 3. Inflammatory changes in the ethmoid and left maxillary sinuses. Electronically signed by: Yong Mcmanus On 10/26/2020 18:23:58 PM
== END ==
LOC: M RAD 18:04
PROVIDERS: ATTEND Otolaryngology
DX: J34.2 Deviated nasal septum (principal)

== ENCOUNTER → 2020-12-15 | Outpatient (CLI) | payer OTHER | LOC: M LABSMTC 12:01 | PROVIDERS: ATTEND Anesthesiology | DX: Z01.812 Encounter for preprocedural laboratory examination (principal) ==

== ENCOUNTER 2020-12-20 08:11 | Day surgery (SDC) | payer OTHER ==
[~2020-12-20] VITALS: Ht 170.2 cm; Wt 83.8 kg
[~2020-12-20 08:11] MED LIST changes: +ALBU8.5H; -BUPR150T5; +BUPR150T5 PO; -GABA-282; +GABA-282 PO; +LIDOCAINE 1% MDV 20ML VIAL SQ PRN; +LR 1,000 ML IV ONE; +TOPI25TA10
[2020-12-20] MEDS ORDERED: dexameTHASONE 4 MG/ML 1ML VIAL (J1100 PER 1MG) As Ordered ONE (08:55)
[2020-12-20] MEDS ORDERED: ROCURONIUM BROMIDE 50 MG/5 ML VIAL As Ordered ONE (08:55)
[2020-12-20] MEDS ORDERED: LIDOCAINE 2% 100MG/5ML SDV (FOR ANES.) As Ordered ONE (08:55)
[2020-12-20] MEDS ORDERED: ONDANSETRON 4MG/2ML VIAL As Ordered ONE (08:55)
[2020-12-20] MEDS ORDERED: fentaNYL 100 MCG/2 ML INJECTION (J3010) As Ordered ONE (08:55)
[2020-12-20] MEDS ORDERED: MIDAZOLAM INJ 2MG/2ML VIAL (J2250 PER 1MG) As Ordered ONE (08:55)
[2020-12-20] MEDS ORDERED: propofoL 200 MG/20 ML VIAL As Ordered ONE ×2 (08:58→10:31)
[2020-12-20] MEDS ORDERED: LIDOCAINE W/EPINEPHRINE 1% 20ML VIAL As Ordered ONE (09:34)
[2020-12-20] MEDS ORDERED: EPINEPHrine 1MG/ML INJ 30ML MD-VIAL As Ordered ONE ×2 (09:35→10:54)
[2020-12-20] MEDS ORDERED: METHYLENE BLUE 0.5% (5MG/ML) 10 ML AMP (PROVAYBLUE) As Ordered ONE (09:35)
[2020-12-20] MEDS ORDERED: ACETAMINOPHEN 1000MG 100ML IV BTL (OFIRMEV) (J0131 PER 10MG) As Ordered ONE (10:16)
[2020-12-20] MEDS ORDERED: SUGAMMADEX SODIUM 500 MG/5 ML VIAL (BRIDION) As Ordered ONE (10:20)
[2020-12-20] MEDS ORDERED: METOCLOPRAMIDE INJ 10MG/2ML VIAL (J2765 PER 1) As Ordered ONE (10:25)
[2020-12-20] MEDS ORDERED: LR 1,000 ML IV SCH ×2 (11:30→11:55)
[2020-12-20] MEDS ORDERED: ONDANSETRON 4MG/2ML VIAL IV PRN (11:55)
[2020-12-20] MEDS ORDERED: fentaNYL 100 MCG/2 ML INJECTION (J3010) IV PRN (11:55)
[2020-12-20] MEDS: oxyCODONE 5MG TAB PO PRN ×2 (12:08→12:35)
[2020-12-20 13:20] VITALS: BP 118/65
[2020-12-21] MEDS ORDERED: UNRESOLVED CLARIFICATION ENTRY XX SCH (00:01)
--- NOTE | 2020-12-21 08:13 | RO ---
OPERATIVE NOTE DATE OF OPERATION: 12/20/2020 PREOPERATIVE DIAGNOSIS: Recurrent sinusitis, nasoseptal deviation, chronic rhinitis. POSTOPERATIVE DIAGNOSIS: Recurrent sinusitis, nasoseptal deviation, chronic rhinitis. PROCEDURE: Septoplasty, antrostomy, bilateral turbinectomy. SURGEON: Justino Hunter MD COUNTER POCKET TRIMMER: ANESTHESIA: DESCRIPTION OF PROCEDURE: Under general anesthesia with the patient intubated, the patient was prepped and draped in the usual manner. I used pledgets Adrenalin 1:100,000 and infiltrated with Lidocaine with Epinephrine. I started first by making an incision anterior on the left side, elevated sub-perichondrial plane. I elevated the perichondrium off the cartilage and periosteum off the maxillary crest and I removed the inferior portion of the quadrangular cartilage, the quadrangular cartilage from the ethmoid plate and removed portion of the ethmoid plate. I then sectioned the cartilage anterior and once this was done the septum was straight. I closed that with 4-0 Monocryl suture. I also used 4-0 chromic. I then made an incision anterior to the inferior turbinate on both sides, elevated the mucosa and then removed portion of the aidee as both sides. I closed that anterior incision with 4-0 Monocryl. I then went between the middle turbinate lateral nasal wall and removed portion of the uncinate process and then opened up the maxillary sinus and then extended that opening anteriorly, posteriorly, superiorly, and inferiorly. Same procedure was performed on both sides. There was less than 20 mL of blood loss. Propel implants were placed in the osteomeatal complex area on both sides. The patient tolerated the procedure well, was extubated and transferred to the recovery room in excellent condition.
--- NOTE | 2020-12-21 10:36 | RO ---
OPERATIVE NOTE DATE OF OPERATION: 12/20/2020 PREOPERATIVE DIAGNOSES: Deviated septum, chronic rhinitis. POSTOPERATIVE DIAGNOSES: Deviated septum, chronic rhinitis. PROCEDURE: Bilateral turbinectomy, septoplasty. SURGEON: Dr. Justino Hunter Under general anesthesia with the patient intubated, patient prepped and draped in the usual manner. I used pledgets of adrenaline 1:100,000, infiltrated with lidocaine with epinephrine. I made an incision anterolaterally in the subperichondrial periosteal plane. I removed an inferior strip of cartilage and then portions of the quadrangular plate. Once this was done, then I sectioned the cartilage anteriorly. (1:23) (stopped dictating)./verified/ml
== END 2020-12-20 13:40 | disposition home or self-care (01) ==
LOC: M SDC 08:11
PROVIDERS: ATTEND Otolaryngology
DX: J34.2 Deviated nasal septum (principal); J31.0 Chronic rhinitis; J32.9 Chronic sinusitis, unspecified; D64.9 Anemia, unspecified; F43.10 Post-traumatic stress disorder, unspecified; F41.9 Anxiety disorder, unspecified; F32.9 Major depressive disorder, single episode, unspecified; Z87.891 Personal history of nicotine dependence; Z79.899 Other long term (current) drug therapy
CPT/HCPCS: 30140; 30520; 31267; 81025; C2625; J0131; J1100; J2250; J2405; J2765; J3010; Q9968